=== PATIENT | male | born 1945 | race Caucasian/White ===

== ENCOUNTER 2023-02-04 08:36 | Outpatient (CLI) | payer BC | END 2023-02-04 23:59 | disposition short-term general hospital (02) | LOC: EMS 08:36 | DX: S01.01XA Laceration without foreign body of scalp, initial encounter (principal); R40.4 Transient alteration of awareness; I48.91 Unspecified atrial fibrillation; W18.39XA Other fall on same level, initial encounter; Y92.009 Unspecified place in unspecified non-institutional (private) residence as the place of occurrence of the external cause | CPT/HCPCS: A0425; A0427 ==

== ENCOUNTER 2023-02-14 08:00 | Outpatient (CLI) | payer BC ==
[2023-02-14 17:34] LABS: ALBUMIN 2.3 g/dL (3.2-5.5)
[2023-02-14 17:38] LABS: ALBUMIN/GLOBULIN RATIO 0.8 (1.0-2.2); BASOPHILS % (AUTO) 0.1 %; BILIRUBIN,TOTAL 0.7 mg/dL (0.2-1.0); CALCIUM 7.5 mg/dL (8.5-10.3); CREATININE 0.6 mg/dL (0.6-1.3); EOSINOPHILS % (AUTO) 0.1 %; HCT - HEMATOCRIT 20.3 % (42.0-52.0); LYMPHOCYTES # (AUTO) 0.4 10^3/uL (1.5-3.5); LYMPHOCYTES % (AUTO) 5.3 %; MEAN CORPUSCULAR HEMOGLOBIN 27.2 pg (27.0-31.0); MEAN CORPUSCULAR VOLUME 87.5 fL (80.0-94.0); MONOCYTES # (AUTO) 0.4 10^3/uL (0.0-1.0); MONOCYTES % (AUTO) 6.3 %; NEUTROPHILS # (AUTO) 5.9 10^3/uL (1.5-6.6); NEUTROPHILS % (AUTO) 83.9 %; NRBC ABSOLUTE COUNT (AUTO) 0.02 x10^3/uL; NUCLEATED RED BLOOD CELLS AUTO 0.3 /100WBC; POTASSIUM 4.5 mmol/L (3.5-4.5); RED BLOOD COUNT 2.32 10^6/uL (4.70-6.10); RED CELL DISTRIBUTION WIDTH 18.4 % (12.0-15.0); TOTAL PROTEIN 5.1 g/dL (6.4-8.9)
[2023-02-14 17:46] LABS: HGB - HEMOGLOBIN 6.3 g/dL (14.0-18.0)
[2023-02-14 17:50] LABS: GLUCOSE, URINE (UA) NEGATIVE (NEGATIVE); KETONES,URINE (UA) NEGATIVE (NEGATIVE); LEUKOCYTE ESTERASE, URINE NEGATIVE (NEGATIVE); NITRITE,URINE NEGATIVE (NEGATIVE); OCCULT BLOOD,URINE NEGATIVE (NEGATIVE); PROTEIN,URINE TRACE mg/dL (NEGATIVE); UROBILINOGEN,URINE 4 E.U./dL (NORMAL)
[2023-02-14 18:11] LABS: PLATELET ESTIMATE, MANUAL NORMAL (130-450,000) (NORMAL); PLATELET MORPHOLOGY PLATELET CLUMPING (NORMAL); SLIDE REVIEW? Indicated
[2023-02-14 18:38] LABS: BILIRUBIN,URINE NEGATIVE (NEGATIVE); CLARITY,URINE HAZY (CLEAR); ICTOTEST,URINE NEGATIVE
[2023-02-14 18:39] LABS: BACTERIA,URINE Rare /HPF (None Seen); CRYSTALS,URINE 3-5 Uric Acid /LPF; RBC,URINE 0-5 /HPF (0-5); SQUAMOUS EPITHELIAL CELL,UR RARE Squamous (<= Few); WBC,URINE 0-3 /HPF (0-3)
== END 2023-02-14 23:59 | disposition home or self-care (01) ==
LOC: LAB 08:00
PROVIDERS: ATTEND Registered Nurse
DX: I10 Essential (primary) hypertension (principal); R30.0 Dysuria
CPT/HCPCS: 36415; 80053; 81001; 81003; 85025; 87086

== ENCOUNTER 2023-02-14 18:27 | Outpatient (CLI) | payer MEDICARE, BC | END 2023-02-14 18:28 | disposition other institution (70) | LOC: EMS 18:27 | DX: D64.9 Anemia, unspecified (principal) | CPT/HCPCS: A0425; A0429 ==

== ENCOUNTER 2023-02-14 18:35 | Emergency (ER) | payer BC ==
--- NOTE | 2023-02-14 18:48 | ED Physician Documentation ---
History of Present Illness - Stated complaint Stated Complaint: Abnormal labs - Chief complaint Chief Complaint: General - History obtained from History obtained from: Patient, Family, EMS - Additonal information Additional information: 77-year-old gentleman with metastatic prostate cancer had a recent fall with head injury, multiple fractures including vertebral and ribs. Has been at [facility] for about 4 days now. He is in a c-collar. 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 Also a sodium of 121. I do not have priors available for comparison. He is feeling okay in general. There is no report of melena. PD PAST MEDICAL HISTORY - Past Medical History Cardiovascular: Hypertension, High cholesterol Respiratory: None Endocrine/Autoimmune: None GI: None : None HEENT: Chronic vision loss, Chronic hearing loss Psych: None Musculoskeletal: None Derm: None - Past Surgical History HEENT: Cataracts - Present Medications Home Medications: Ambulatory Orders Medication Instructions Recorded Confirmed Amlodipine Besylate 10 mg PO DAILY 04/23/16 05/08/16 Atorvastatin Calcium [Lipitor] 40 mg PO DAILY 04/23/16 05/07/16 Lisinopril 20 mg PO DAILY 04/23/16 05/07/16 - Allergies Allergies/Adverse Reactions: Allergies Allergy/AdvReac Type Severity Reaction Status Date / Time No Known Drug Allergies Allergy Verified 02/14/23 18:44 PD ED PE NORMAL - Vitals Vital signs reviewed: Yes - General General: Alert and oriented X 3, Other (Pale and very hard of hearing but in no distress) - Neck Neck: Other (In a c-collar) - Cardiac Cardiac: RRR, No murmur - Respiratory Respiratory: No respiratory distress, Clear bilaterally - Abdomen Abdomen: Non tender - Extremities Extremities: No edema, No calf tenderness / cord - Neuro Neuro: Alert and oriented X 3, Normal speech - Psych Psych: Normal mood, Normal affect Results - Vitals Vitals: Vital Signs - 24 hr 02/14/23 02/14/23 02/14/23 18:40 20:00 20:32 Temperature 36.5 C 36.8 C Heart Rate 89 85 Heart Rate [ 84 Monitoring electrodes] Respiratory 20 13 19 Rate Blood Pressure 102/49 L 101/46 L Blood Pressure 103/47 L [right aem] O2 Saturation 93 97 97 02/14/23 20:51 Temperature 36.9 C Heart Rate Heart Rate [ 87 Monitoring electrodes] Respiratory 18 Rate Blood Pressure Blood Pressure 105/50 L [right aem] O2 Saturation 97 Oxygen O2 Source Room air - Labs Labs: Laboratory Tests 02/14/23 02/14/23 16:16 19:11 Blood Type B POSITIVE Blood Type Recheck B POSITIVE Antibody Screen NEGATIVE Crossmatch IS Only See Detail PD Medical Decision Making - ED course ED course: 77yo M with hx metastatic prostate CA, transfusion dependence per daughter. No obvious blood loss but hgb 6.3 Ordered 2 units Note outpt labs NA 121. Chronicity unknown.,Advised SNF f/u chronicity and plan based on physician input there. Departure - Departure Clinical Impression: Hyponatremia Anemia Qualifiers: Anemia type: unspecified type Qualified Code(s): D64.9 - Anemia, unspecified Condition: Good Record reviewed to determine appropriate education?: Yes Comments: Mehul was seen today for recurrent anemia. He is probably have repeat labs in about 3 days. We did note that on his labs earlier today he had a low sodium value at 121. I was not sent any prior labs so I do not know if this is new or chronic, this should be discussed with the physician writing his orders at the intermediate tomorrow. They may want to do a fluid restriction or salt tabs as they feel is appropriate. He did receive 2 units of blood tonight. Forms: PCP List
[2023-02-15 02:14] VITALS: BP 120/48; O2SAT 96
== END 2023-02-15 03:04 | disposition home or self-care (01) ==
LOC: EDUNIT# → ED 18:35
DX: C61 Malignant neoplasm of prostate (principal); E87.1 Hypo-osmolality and hyponatremia; D64.9 Anemia, unspecified; I10 Essential (primary) hypertension; R30.0 Dysuria
CPT/HCPCS: 36415; 36430; 80053; 81001; 85025; 86850; 86900; 86901; 86920; 99283; 99285; P9016; 81003; 87086

== ENCOUNTER 2023-02-15 03:06 | Outpatient (CLI) | payer MEDICARE, BC | END 2023-02-15 03:07 | disposition home or self-care (01) | LOC: EMS 03:06 | PROVIDERS: ATTEND Emergency Medicine | DX: D64.9 Anemia, unspecified (principal) | CPT/HCPCS: A0425; A0428 ==

== ENCOUNTER 2023-02-19 08:00 | Outpatient (CLI) | payer MEDICARE, BC ==
[2023-02-19 16:15] LABS: BASOPHILS % (AUTO) 0.2 %; HCT - HEMATOCRIT 26.7 % (42.0-52.0); HGB - HEMOGLOBIN 8.6 g/dL (14.0-18.0); LYMPHOCYTES % (AUTO) 5.3 %; MEAN CORPUSCULAR HEMOGLOBIN 27.5 pg (27.0-31.0); MEAN CORPUSCULAR HGB CONC 32.2 g/dL (32.0-36.0); MEAN CORPUSCULAR VOLUME 85.3 fL (80.0-94.0); MEAN PLATELET VOLUME 8.7 fL (7.4-11.4); MONOCYTES % (AUTO) 4.7 %; NEUTROPHILS % (AUTO) 84.6 %; PLT - PLATELET COUNT 118 10^3/uL (130-450); RED BLOOD COUNT 3.13 10^6/uL (4.70-6.10); RED CELL DISTRIBUTION WIDTH 18.2 % (12.0-15.0); WHITE BLOOD COUNT 8.1 x10^3/uL (4.8-10.8)
[2023-02-19 16:20] LABS: ABNORMAL LYMPHS % (MANUAL) 0 %
[2023-02-19 16:28] LABS: ALBUMIN 2.2 g/dL (3.2-5.5)
[2023-02-19 16:35] LABS: ALBUMIN/GLOBULIN RATIO 0.8 (1.0-2.2); BILIRUBIN,TOTAL 0.6 mg/dL (0.2-1.0); CALCIUM 7.5 mg/dL (8.5-10.3); CREATININE 0.5 mg/dL (0.6-1.3); POTASSIUM 4.7 mmol/L (3.5-4.5); TOTAL PROTEIN 4.8 g/dL (6.4-8.9)
[2023-02-19 17:42] LABS: BAND NEUTROPHILS % (MANUAL) 7 %; LYMPHOCYTES # (MANUAL) 0.2 10^3/uL (1.5-3.5); LYMPHOCYTES % (MANUAL) 3 %; METAMYELOCYTES % (MANUAL) 3 %; MONOCYTES # (MANUAL) 0.7 10^3/uL (0.0-1.0); NEUTROPHILS # (MANUAL) 6.9 10^3/uL (1.5-6.6)
[2023-02-19 17:43] LABS: DIFFERENTIAL COMMENT MANUAL DIFFERENTIAL; PLATELET ESTIMATE, MANUAL DECREASED (<130,000) (NORMAL); PLATELET MORPHOLOGY NORMAL APPEARANCE (NORMAL); RBC MORPHOLOGY (MULTIPLE) NORMAL APPEARANCE (NORMAL); WBC MORPHOLOGY (MULTIPLE) 2+ TOXIC GRANULATION (NORMAL)
== END 2023-02-19 23:59 | disposition home or self-care (01) ==
LOC: LAB.R 08:00
PROVIDERS: ATTEND Registered Nurse
DX: I10 Essential (primary) hypertension (principal); E87.1 Hypo-osmolality and hyponatremia; D64.9 Anemia, unspecified
CPT/HCPCS: 80053; 85025

== ENCOUNTER 2023-02-19 17:45 | Outpatient (CLI) | payer MEDICARE, BC | END 2023-02-19 17:46 | disposition critical access hospital (66) | LOC: EMS 17:45 | DX: R79.89 Other specified abnormal findings of blood chemistry (principal) | CPT/HCPCS: A0425; A0429 ==

== ENCOUNTER 2023-02-19 17:57 | Emergency (ER) | payer MEDICARE, BC ==
--- NOTE | 2023-02-19 18:06 | ED Physician Documentation ---
History of Present Illness - Stated complaint Stated Complaint: LOW SODIUM - Additonal information Additional information: 77-year-old male who has a history of metastatic cancer and is scheduled to enter hospice on February 21 was transported to the emergency department for evaluation of hyponatremia. He had routine labs obtained by his [facility] physician showing hyponatremia with a sodium of 120 today. When he was seen in this ER on 14 February his sodium level was 121. It is essentially unchanged. The patient is alert and oriented. Asim the shoeshiner is at the bedside and in the department today. She was able to speak with the patient's on the phone and they indicate that transferring to the emergency department is against his care wishes. As such the patient is going to be discharged back to [facility]. He will be discharged home tomorrow and he will be entered into hospice services on February 21. Review of Systems Unable to obtain: Dementia, Other PD PAST MEDICAL HISTORY - Past Medical History Cardiovascular: Hypertension, High cholesterol Respiratory: None Endocrine/Autoimmune: None GI: None : None HEENT: Chronic vision loss, Chronic hearing loss Psych: None Musculoskeletal: None Derm: None - Past Surgical History HEENT: Cataracts - Present Medications Home Medications: Ambulatory Orders Medication Instructions Recorded Confirmed Amlodipine Besylate 10 mg PO DAILY 04/23/16 05/08/16 Atorvastatin Calcium [Lipitor] 40 mg PO DAILY 04/23/16 05/07/16 Lisinopril 20 mg PO DAILY 04/23/16 05/07/16 - Allergies Allergies/Adverse Reactions: Allergies Allergy/AdvReac Type Severity Reaction Status Date / Time No Known Drug Allergies Allergy Verified 02/14/23 18:44 - Social History Does the pt smoke?: No Smoking Status: Never smoker Does the pt drink ETOH?: No Does the pt have substance abuse?: No - POLST Patient has POLST: Yes PD ED PE NORMAL - General General: No acute distress, Well developed/nourished - Cardiac Cardiac: RRR - Respiratory Respiratory: No respiratory distress, Clear bilaterally - Abdomen Abdomen: Normal bowel sounds, Soft Results - Vitals Vitals: Oxygen O2 Source Room air PD Medical Decision Making - ED course Complexity details: reviewed results, d/w family ED course: 77-year-old male who has a history of metastatic cancer and is scheduled to enter hospice on February 21 was sent to the emergency department when routine labs were obtained today through the [facility] physician services. They found that he had a sodium of 120. However when the patient was seen in this emergency department on the his sodium was 121. Essentially unchanged. We were able to contact the patient's who indicated that treatment in the emergency department for this is against his care wishes and as he will enter hospice on Friday the patient is simply being returned to [facility]. The disposition of this patient was helped by Asim the shoeshiner who was in the department at the time of his arrival. He is sent back to [facility] and a S rig. Appropriate [employer] paperwork completed. Departure - Departure Disposition: 01 Home, Self Care Clinical Impression: Hyponatremia Comments: Mehul was sent to the ER because his labs today indicated a very low sodium level of 120. When he was seen in the ER 5 days ago his sodium level was 121. This is essentially unchanged. Because he will be admitted to hospice on Friday and it is against the wishes of the family and the patient to pursue treatment of this we are simply discharging him back to [facility].
[2023-02-20 11:00] VITALS: BP 112/54; O2SAT 93
== END 2023-02-19 18:32 | disposition home or self-care (01) ==
LOC: EDUNIT# → EDBD → ED 17:57
DX: E87.1 Hypo-osmolality and hyponatremia (principal); Z74.01 Bed confinement status; I10 Essential (primary) hypertension; D64.9 Anemia, unspecified
CPT/HCPCS: 80053; 85025; 99283

== ENCOUNTER 2023-02-19 18:13 | Outpatient (CLI) | payer MEDICARE, BC | END 2023-02-19 18:14 | LOC: EMS 18:13 | PROVIDERS: ATTEND Registered Nurse | DX: R79.89 Other specified abnormal findings of blood chemistry (principal); Z74.01 Bed confinement status | CPT/HCPCS: A0425; A0428 ==

== ENCOUNTER 2023-02-21 10:20 | Outpatient (CLI) | payer MEDICARE, BC | END 2023-02-21 23:59 | disposition hospice, home (50) | LOC: EMS 10:20 | PROVIDERS: ATTEND Family Medicine | DX: Z51.5 Encounter for palliative care (principal); Z74.01 Bed confinement status | CPT/HCPCS: A0425; A0428 ==